=== PATIENT | male | born 1960 | race Caucasian/White ===

== ENCOUNTER 2021-10-31 20:59 | Emergency (ER) | payer MEDICAID, SELFPAY ==
[2021-10-31 21:01] VITALS: BP 148/82; PULSE 91; RESP 16; TEMP 36.6; O2SAT 97; BMI 22.9
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
[2021-10-31] MEDS: Ketorolac 60 MG/2 ML Vial IM (21:38)
[2021-10-31] MEDS: oxyCODONE 5 MG Tablet 10 MG PO (21:40)
[2021-10-31 22:06] VITALS: BP 141/91; PULSE 80; RESP 15; O2SAT 98
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
== END 2021-10-31 22:37 | disposition home or self-care (01) ==
PROVIDERS: Emergency Provider Emergency Medicine; Visit Provider Emergency Medicine
DX: S22.31XA Fracture of one rib, right side, initial encounter for closed fracture (principal); W22.09XA Striking against other stationary object, initial encounter; Y99.8 Other external cause status; N28.1 Cyst of kidney, acquired
CPT/HCPCS: 71250; 96372; 99283